=== PATIENT | female | born 1995 | race Asian ===

== ENCOUNTER → 2019-06-12 | Outpatient (CLI) | payer OTHER ==
[2019-06-12 17:21] LABS: BASO % 0.4 % (0.0-1.0); EOS # 0.1 10^3/uL (0.0-0.5); HEMATOCRIT 40.7 % (36.0-47.0); HEMOGLOBIN 13.1 g/dl (12.0-15.5); LYMPH # 2.5 10^3/uL (1.5-5.0); LYMPH % 22.8 % (24.0-44.0); MEAN CORPUSCULAR HEMOGLOBIN 26.3 pg (27.0-33.0); MEAN CORPUSCULAR HGB CONC 32.2 g/dl (32.0-36.5); MEAN CORPUSCULAR VOLUME 81.7 fl (80.0-96.0); MONO # 0.9 10^3/uL (0.0-0.8); MONO % 8.8 % (0.0-5.0); NEUTROPHILS # 7.2 10^3/uL (1.5-8.5); NEUTROPHILS % 66.6 % (36.0-66.0); PLATELET COUNT, AUTOMATED 323 10^3/uL (150-450); RED BLOOD COUNT 4.98 10^6/uL (4.00-5.40); WHITE BLOOD COUNT 10.7 10^3/uL (4.0-10.0)
[2019-06-12 17:48] LABS: FREE THYROXINE INDEX 3.5 % (1.3-4.8); T UPTAKE 30 % (30-39); THYROXINE (T4) 11.5 UG/DL (4.5-12.0)
[2019-06-12 18:33] LABS: CHLAMYDIA DNA AMPLIFICATION NEGATIVE (NEGATIVE); GC DNA AMPLIFICATION NEGATIVE (NEGATIVE)
[2019-06-15 13:07] LABS: RUBELLA IgG QUALITATIVE IMMUNE (IMMUNE)
[2019-06-15 13:36] LABS: HIV 1&2 SCREEN CENTAUR NEGATIVE (NEGATIVE)
== END ==
LOC: M SMT 15:39
PROVIDERS: ATTEND Advanced Practice Midwife
DX: Z34.01 Encounter for supervision of normal first pregnancy, first trimester (principal); Z3A.00 Weeks of gestation of pregnancy not specified

== ENCOUNTER → 2019-09-02 | Outpatient (CLI) | payer OTHER ==
--- NOTE | 2019-09-03 02:17 | REP ---
Clinical: Anatomical evaluation. Comparison: None . Findings: Examination demonstrates a single live intrauterine in cephalic presentation. motion is identified by technologist. Placenta is noted anterior and grade zero without evidence for placenta previa or abruption. Amniotic fluid volume is normal. Cervix measures 3.2 cm in length and appears closed. No evidence for nuchal cord. Gestational age by LMP 19 weeks 2 days with ANTHONY 01/25/2020 . Gestational age by current measurements 19 weeks 5 days with ANTHONY 01/22/2020 . FHR equals 153 beats per minute. BPD 4.5 cm 19 weeks 4 days HC 17.1 cm 19 weeks 5 days AC 14.4 cm 19 weeks 5 days FL 3.1 cm 19 weeks 4 days HL 3.1 cm 20 weeks 3 days HC/AC ratio 1.19 Estimated weight 305 grams ( 60th percentile). Anatomical assessment demonstrates normal structures including cranium, choroid plexus, cavum, cerebellum/posterior fossa, facial features, lungs, four-chamber heart/ventricular outflow tracts, diaphragm, stomach, cord insertion/three-vessel cord, kidneys/bladder, spine, and extremities. Impression: Single live intrauterine in cephalic presentation demonstrating appropriate interval growth. Anatomical assessment is complete and within normal limits. Electronically Signed by Alfred Lopez MD 09/03/2019 02:08 A
== END ==
LOC: M RAD 16:34
PROVIDERS: ATTEND Specialist
DX: Z36.3 Encounter for antenatal screening for malformations (principal); Z3A.19 19 weeks gestation of pregnancy

== ENCOUNTER 2019-10-10 16:40 | Outpatient (CLI) | payer OTHER ==
[~2019-10-10] VITALS: Ht 157.5 cm; Wt 73.6 kg
[2019-10-10] MEDS ORDERED: ZOFR4TAB16 PO (17:00)
[2019-10-10] MEDS ORDERED: PRENTAB9 PO (17:00)
[2019-10-10 18:11] VITALS: BP 108/66
--- NOTE | 2019-10-10 18:44 | REPVR ---
PROCEDURE INFORMATION: Exam: US Abdomen Limited, Right Upper Quadrant Exam date and time: 10/10/2019 6:05 PM Age: 24 years old Clinical indication: Abdominal pain; Acute; ; Additional info: Ruq pain TECHNIQUE: Imaging protocol: Real-time ultrasound of the abdomen with image documentation. Examination was focused on the right upper quadrant. COMPARISON: No relevant prior studies available. FINDINGS: Liver: Normal. No masses. Gallbladder: No gallstones. No gallbladder wall thickening. Common bile duct: Normal. No stones. No dilation. Pancreas: Visualized pancreas is unremarkable. Right kidney: Mild right-sided hydronephrosis. Other findings: heart rate measures 144 beats per minute. IMPRESSION: Mild right-sided hydronephrosis, most likely related to the gravid uterus compressing the distal right ureter. Electronically signed by: Janneth Torres On 10/10/2019 18:44:33 PM
[2019-10-10 18:54] LABS: HEMATOCRIT 35.7 % (36.0-47.0); HEMOGLOBIN 11.6 g/dl (12.0-15.5); MEAN CORPUSCULAR HEMOGLOBIN 26.8 pg (27.0-33.0); MEAN CORPUSCULAR HGB CONC 32.5 g/dl (32.0-36.5); MEAN CORPUSCULAR VOLUME 82.4 fl (80.0-96.0); PLATELET COUNT, AUTOMATED 273 10^3/uL (150-450); RED BLOOD COUNT 4.33 10^6/uL (4.00-5.40); WHITE BLOOD COUNT 8.4 10^3/uL (4.0-10.0)
[2019-10-10 19:25] LABS: ALBUMIN 3.2 GM/DL (3.2-5.2); ALT/SGPT 15 U/L (12-78); BILIRUBIN,TOTAL 0.4 MG/DL (0.2-1.0); BLOOD UREA NITROGEN 7 MG/DL (7-18); CALCIUM LEVEL 8.6 MG/DL (8.5-10.1); CARBON DIOXIDE LEVEL 24 MEQ/L (21-32); CHLORIDE LEVEL 108 MEQ/L (98-107); GLOMERULAR FILTRATION RATE > 60.0 (>60); GLUCOSE, FASTING 67 MG/DL (70-100); LIPASE 84 U/L (73-393); POTASSIUM SERUM 3.9 MEQ/L (3.5-5.1); SODIUM LEVEL 139 MEQ/L (136-145)
--- NOTE | 2019-10-11 20:36 | IPN ---
DATE: 10/10/2019 24-year-old 1 at 25 weeks gestation presents with upper abdominal pain near her rib cage for the last several hours. The pain was severe and lasted for about 2 hours, it then eased off. She has felt nausea on and off throughout . She had no bleeding. The pain was severe. She felt pelvic pressure. OBJECTIVE: Afebrile, vital signs stable. No apparent distress. Head and neck exam normal. Lungs clear. Heart regular. Abdomen: Nontender, gravid, negative Brothers's sign, heart tones category 1. ASSESSMENT: 24-year-old, 1 at 25 weeks with costochondritis. PLAN: Will check labs and gallbladder ultrasound to rule out other causes of pain. The patient can be discharged home. Followup in the office this week.
== END 2019-10-10 20:01 | disposition home or self-care (01) ==
LOC: M LDO 16:40
PROVIDERS: ATTEND Specialist
DX: O99.89 Other specified diseases and conditions complicating pregnancy, childbirth and the puerperium (principal); R07.89 Other chest pain; Z3A.25 25 weeks gestation of pregnancy
CPT/HCPCS: 76705; 80053; 83690; 85027; G0378; G0463

== ENCOUNTER → 2019-10-19 | Outpatient (REF) | payer OTHER ==
[~2019-10-19] MED LIST: PRENTAB9 PO; ZOFR4TAB16 PO
[2019-10-19 15:56] LABS: HEMATOCRIT 36.2 % (36.0-47.0); HEMOGLOBIN 11.7 g/dl (12.0-15.5); MEAN CORPUSCULAR HEMOGLOBIN 27.3 pg (27.0-33.0); MEAN CORPUSCULAR HGB CONC 32.3 g/dl (32.0-36.5); MEAN CORPUSCULAR VOLUME 84.4 fl (80.0-96.0); PLATELET COUNT, AUTOMATED 281 10^3/uL (150-450); RED BLOOD COUNT 4.29 10^6/uL (4.00-5.40); WHITE BLOOD COUNT 9.1 10^3/uL (4.0-10.0)
== END ==
LOC: M PLALAB 11:22
PROVIDERS: ATTEND Specialist
DX: Z34.02 Encounter for supervision of normal first pregnancy, second trimester (principal)

== ENCOUNTER → 2019-12-30 | Outpatient (REF) | payer OTHER | LOC: M LAB REF 16:54 | PROVIDERS: ATTEND Obstetrics & Gynecology | DX: Z3A.36 36 weeks gestation of pregnancy (principal) ==

== ENCOUNTER 2020-01-21 03:58 | Inpatient (IN) | payer OTHER ==
[~2020-01-21] VITALS: Ht 157.5 cm; Wt 79.2 kg
[2020-01-21 04:16] VITALS: BP 132/74
[2020-01-21] MEDS ORDERED: LACTATED RINGER'S 1000 ML IV STA (04:21)
[2020-01-21] MEDS ORDERED: LR 1,000 ML IV SCH (04:21)
[2020-01-21 05:14] LABS: HEMATOCRIT 40.8 % (36.0-47.0); HEMOGLOBIN 13.7 g/dl (12.0-15.5); MEAN CORPUSCULAR HGB CONC 33.6 g/dl (32.0-36.5); MEAN CORPUSCULAR VOLUME 80.3 fl (80.0-96.0); PLATELET COUNT, AUTOMATED 253 10^3/uL (150-450); RED BLOOD COUNT 5.08 10^6/uL (4.00-5.40); WHITE BLOOD COUNT 11.6 10^3/uL (4.0-10.0)
[2020-01-21] MEDS ORDERED: FENTANYL 2MCG/ML ROPIVACAINE 0.2% IN 0.9% NACL 100ML IVBAG As Ordered ONE (05:55)
--- NOTE | 2020-01-21 06:30 | HPEPDOC ---
Obstetrical History & Physical General Date of Admission Jan 21, 2020 at 04:27 Primary Care Physician: EBONY HUFFMAN CNM History of Present Illness Patient is a 24-year-old female who is a at 39.3 weeks gestation with an ANTHONY of 01/23/20 based off of her first trimester ultrasound. She [facility] i n [facility] Her has been uncomplicated. She presents to L&D with complaints of leaking of fluid and contractions. She denies vaginal bleeding. Reports active movement. Chief Complaint: Active Labor, Rupture of membranes Information Provided By: Patient Age: 24 : 1 Term: 0 Pre-term: 0 Abortions: 0 Livin Care Care: Good Care Dating Final EDC: Jan 25, 2020 Final EDC by: 1st trimester (US) EGA at Admission: 39.3 Antepartum Course Height (inches): 62 Pre- weight (lbs.): 142 Admission Weight (lbs.): 174 Change in Weight (lbs.): 32 Past Medical History Past Obstetrical History : Past Obstetrical History: Primgravida Past Medical History Surgical History: Tonsilectomy, Other (adenoidectomy) Family History Significant Family History: Hypertension, Other (thyroid disease) Social History Social history No medical issues Marital Status: Family situation: Spouse/partner home Psychosocial History: No pertinent psych hx * Smoker: non-smoker Alcohol: Denies Drugs: denies Abuse Violence Screening Have you been hit/kicked/slapp: No Have you been sexually assault: No Allergies Coded Allergies: No Known Allergies (Unverified , 10/10/19) Medications Scheduled No.137/Iron/Folic Acd ( Vitamin Tablet) 1 Each Tablet, 1 TAB PO DAILY Scheduled PRN Ondansetron HCl (Zofran) 4 Mg Tablet, 1 TAB PO Q6-8HP PRN for nausea/vomiting Physical Examination Physical Examination GENERAL: Alert and oriented times three. BREAST: . ABDOMEN: Gravid and non-tender to touch. FETUS: Is vertex (VTX) by sterile vaginal examination (SVE), fetus is vertex (VTX) by Alex. HEART RATE: Regular rate and rhythm. LUNGS: Clear to auscultation (CTA). EXTREMITIES: No edema. No clonus. Deep tendon reflexes (DTRs) + 2. Vital Signs/I&O Vital Signs Date Time Temp Pulse Resp B/P (MAP) Pulse Ox O2 Delivery O2 Flow Rate FiO2 01/21/20 04:16 98.4 68 18 132/74 (93) Laboratory Data 24H LABS Laboratory Tests 2 01/21/20 04:35: Serology Scanned Report Hepatitis B Testing 01/21/20 05:03: Nucleated Red Blood Cells % (auto) 0.0 CBC/BMP Laboratory Tests 01/21/20 05:03 Urine Culture: No Growth Pertinent Laboratoy Data Blood Type: O+ RBC Antibody Screen: Negative HIV: Negative Hepatitis B: Negative Hepatitis C: Negative Rapid Plasma Reagin: Nonreactive Rubella: Immune Chlamydia/Gonorrhea: Negative Group B Streptococcus: Negative Glucose Tolerance Test: 110 Vaginal Examination Dilation: 6 cm Effacement: 100% Station: -1 Presentation: Cephalic presentation Position: Vertex (occiput) Assessment Heart Rate (FHR): 120 Variability: Moderate Accelerations: Positive Decelerations: None Tocometer Contractions: Yes Frequency: regular Multi-drug resistant Organism: No history of MDRO Assessment/Plan Assessment IUP at 39.3 weeks gestation SROM active labor Category I FHR tracing GBS negative Plan Admit to L&D. OOB ad mikala. Diet: clears. Group B Streptococcus (GBS) negative. Labs and intravenous (IV) per unit protocol. Anesthesia consult per patient's request. Lactated Ringers (LR): Bolus 800 mL, then at 125 mL/hr. Anticipate normal spontaneous delivery (). C-S as appropriate. EBONY HUFFMAN CNM Jan 21, 2020 06:30
[2020-01-21] MEDS ORDERED: OXYTOCIN 30 UNITS IN 0.9% NaCl 500ML IV BAG (J2590) As Ordered ONE (06:48)
[2020-01-21] MEDS ORDERED: fentaNYL 100 MCG/2 ML INJECTION (J3010) As Ordered ONE (06:54)
[2020-01-21] MEDS ORDERED: OXYTOCIN DRIP 30 UNITS in IV 1 EA IV SCH (08:17)
--- NOTE | 2020-01-21 08:22 | DNPDOC ---
[facility] Delivery Note Delivery Note DATE OF DELIVERY: 01/21/20 at 0749 PREDELIVERY DIAGNOSIS: 39-4/7 weeks' gestation and labor. POST DELIVERY DIAGNOSIS: Delivered. PROCEDURE: Spontaneous vaginal delivery. ENVIRONMENTAL RESEARCH SCIENTIST: Ebony Ramos CNM, REYES ANESTHESIA: epidural ESTIMATED BLOOD LOSS: 350 mL. FINDINGS: 6 pounds 14 ounces; 3120 grams; female infant, Score 9/9. DELIVERY SUMMARY: Patient is a 24-year-old female who is now a at 39.4 weeks gestation who presented to L&D in active labor. She received an epidural for pain management, which gave her minimal relief She progressed to fully di lated at 0726 and pushed to a living female in the VIN position with restitution to ROT. The anterior shoulder delivered with ease and the corpus immediately followed at 0749. The baby was placed [id number] active and crying . The cord was clamped after pulsation ceased and cut by the FOB. A 3-vessel cord was noted. The placenta delivered spontaneously and intact at 0754. Uterine hemostasis was achieved via rapid infusion of IV Pitocin and fundal massage. The vagina, perineum and cervix was inspected and found to have a right labial laceration that was repaired with a 4.0 Vicryl Rapide 4.0 RB-1. 1% Lidocaine was used for this. Mom and baby are in stable condition. They plan on naming her Allen. All counts of instruments and sponges are correct. EBONY RAMOS CNM Jan 21, 2020 08:22
[2020-01-21] MEDS ORDERED: RHOGAM 300 MCG (1500 IU) INJ (J2790) IM SCH (08:30)
[2020-01-21] MEDS ORDERED: ACETAMINOPHEN 500 MG TAB PO PRN (08:30)
[2020-01-21] MEDS ORDERED: ACETAMINOPHEN TAB 650MG DOSE (2X325MG) PO PRN (08:30)
[2020-01-21] MEDS ORDERED: MEASLES,MUMPS,RUBELLA VACCINE INJ (MMR-II) (90707) SC SCH (08:30)
[2020-01-21] MEDS ORDERED: DIBUCAINE 1% OINTMENT 30GM TOP PRN (08:30)
[2020-01-21] MEDS ORDERED: ANUSOL HC CREAM 30GM TOP PRN (08:30)
[2020-01-21] MEDS ORDERED: DOCUSATE SODIUM 100 MG CAP PO PRN (08:30)
[2020-01-21] MEDS ORDERED: IBUPROFEN 600 MG TAB PO PRN (08:30)
[2020-01-21] MEDS ORDERED: METHYLERGONOVINE MALEATE 0.2 MG TAB PO PRN (08:30)
[2020-01-21] MEDS: PRENATAL VITAMINS CHEWABLE TABLET PO SCH (08:57)
[2020-01-21 10:03] VITALS: BP 133/82
[2020-01-21] MEDS ORDERED: LIDOCAINE 1% MDV 20ML VIAL INFIL ONE (16:30)
[2020-01-21 18:12] VITALS: BP 124/75
[2020-01-21] MEDS: IBUPROFEN 800 MG TAB PO PRN (22:12)
[2020-01-22] MEDS: IBUPROFEN 800 MG TAB PO PRN (05:37)
[2020-01-22 06:34] VITALS: BP 127/78
--- NOTE | 2020-01-22 07:36 | IPNPDOC ---
Progress Note Date of Service: Jan 22, 2020 Day#: 1 Progress Note SUBJECT: Doing well without complaints. Ambulating, voiding and pain is well-c ontrolled. Reports minimal lochia. +breast feeding OBJECTIVE: VITAL SIGNS: Within normal limits, afebrile. Alert and oriented times three. Abdomen: Fundus firm at U-2. Soft, NTTP. Ext: neg calf tenderness. ASSESSMENT: day #1 status post normal spontaneous vaginal delivery. Recovering in stable condition. PLAN: 1. Continue routine care 2. Discharge plans for tomorrow VS, I&O, 24H, Fishbone Vital Signs/I&O Vital Signs Date Time Temp Pulse Resp B/P (MAP) Pulse Ox O2 Delivery O2 Flow Rate FiO2 01/22/20 06:34 97.3 68 18 127/78 (94) I&O- Last 24 Hours up to 6 AM 01/22/20 05:59 Output Total 925 ml Balance -925 ml KATJA WILLINGHAM MD. Jan 22, 2020 07:36
[2020-01-22] MEDS: PRENATAL VITAMINS CHEWABLE TABLET PO SCH (09:52)
== END 2020-01-22 17:50 | disposition home or self-care (01) | DRG 807 ==
LOC: M LDO 03:58 → M LDI 04:27 → M OBS 09:52
PROVIDERS: ADMIT Advanced Practice Midwife; ATTEND Advanced Practice Midwife
PROC: 10E0XZZ Delivery of Products of Conception, External Approach (ICD-10-PCS; principal; 2020-01-21)
PROC: 0HQ9XZZ Repair Perineum Skin, External Approach (ICD-10-PCS; 2020-01-21)
DX: O70.0 First degree perineal laceration during delivery (principal); Z37.0 Single live birth; Z3A.39 39 weeks gestation of pregnancy

== ENCOUNTER → 2020-04-28 | Outpatient (REF) | payer OTHER ==
[2020-05-03 15:09] LABS: CHLAMYDIA DNA AMPLIFICATION NEGATIVE (NEGATIVE); GC DNA AMPLIFICATION NEGATIVE (NEGATIVE)
== END ==
LOC: M SFHCWAGY 10:41
PROVIDERS: ATTEND Advanced Practice Midwife
DX: Z12.4 Encounter for screening for malignant neoplasm of cervix (principal); N76.0 Acute vaginitis
CPT/HCPCS: 87491; 87591; G0123

== ENCOUNTER 2020-10-31 16:54 | Emergency (ER) | payer OTHER ==
[~2020-10-31] VITALS: Ht 157.5 cm; Wt 56.8 kg
[2020-10-31] MEDS ORDERED: NS 1,000 ML IV SCH (17:15)
[2020-10-31] MEDS ORDERED: ESSETAB4 PO (17:17)
[2020-10-31 18:26] LABS: RSV AMPLIFICATION NEGATIVE (NEGATIVE)
[2020-10-31] MEDS ORDERED: GASTROGRAFIN SOLUTION 30ML (Q9963) As Ordered ONE (19:24)
[2020-10-31] MEDS: GASTROGRAFIN SOLUTION 30ML PO SCH ×2 (19:31→20:15)
[2020-10-31] MEDS ORDERED: ISOVUE-370 76% 100ML VIAL As Ordered ONE (21:08)
--- NOTE | 2020-10-31 21:59 | CR ---
CONSULTATION DATE: 10/31/2020 REASON FOR CONSULTATION: Abdominal pain, possible appendicitis per CT scan from [facility]. HISTORY OF PRESENT ILLNESS: The patient is a pleasant 25-year-old woman who was transferred to [facility] from [facility] with a history of some abdominal discomfort and a CT scan reportedly suggesting acute appendicitis. The patient reports that she had developed fairly suddenly abdominal discomfort with some severe cramping this morning at about noon. She reports that it went from being just a sharp stabbing pain in the right lower quadrant to being pain that radiated across the lower abdomen with severe cramping within a very short period of time. She reports she ended up on the floor in a position in severe pain. After a short time it did improve slightly and she went to the Emergency Department at [facility], where she was checked in just after 1:00 in the afternoon. In the Emergency Department she was given some Zofran and 50 mcg of Fentanyl, and some IV fluid was administered. She underwent laboratory studies and had a CT scan of the abdomen and pelvis obtained. The radiologist had interpreted the CT scan as showing acute appendicitis. The provider at [facility] contacted the nursing pipeline maintenance supervisor, who contacted me and I accepted her in transfer for a surgical evaluation regarding possible appendicitis. The patient denies any history of prior similar pain. She has had no abdominal surgery. ALLERGIES: The patient has no known drug allergies. MEDICATIONS: The patient is currently on no active medications. She does take a daily multivitamin. PAST MEDICAL HISTORY: She denies any active medical problems. PAST SURGICAL HISTORY: The patient's past surgical history is significant for a tonsillectomy and adenoidectomy approximately 15 years ago. FAMILY HISTORY: Noncontributory. SOCIAL HISTORY: The patient is . She denies any tobacco use and has an alcoholic beverage or two about twice a month. She denies any unprescribed drug use. REVIEW OF SYSTEMS: The patient's review of systems revealed no history of heart or lung issues. She denies any history of seizure or stroke. There is no history of diarrhea, constipation, rectal bleeding. She has no history of peptic ulcer disease, hepatitis, pancreatitis or yellow jaundice. She denies dysuria or hematuria. She has no bone or joint problems. She denies any history of DVT or pulmonary embolus. PHYSICAL EXAMINATION: GENERAL APPEARANCE: A thin, pleasant, young woman in no obvious discomfort at this time. She is alert and oriented. VITAL SIGNS: Pulse of about 70-75, blood pressure is normal. She has palpable radial and pedal pulses. SKIN: Warm and dry. HEART: Regular rate and rhythm without murmur. LUNGS: Clear to auscultation bilaterally. ABDOMEN: A few striae. The abdomen is flat. She has bowel sounds present in all four quadrants. There is no tympani to percussion. Palpation reveals the abdomen to be soft throughout. She has some mild direct tenderness in the right lower quadrant but this extends across the mid abdomen and even into the left lower quadrant. She has no guarding and no rebound. There is no palpable mass. There is no evident hernia. LABORATORY STUDIES: Laboratory studies from [facility] included a CBC showing a white count of 10, hemoglobin 12, hematocrit 38, and a platelet count of 324,000. Differential count showed 57% neutrophils, 31% lymphocytes and 10% monocytes. Platelet count was 324,000. Coagulation studies were normal. Chemistry profile showed normal electrolytes with a BUN of 13, creatinine 0.66 and a glucose of 102. Liver function tests were normal as were her total protein, albumin and lipase. A TSH had been done which was normal. A urinalysis was also obtained which showed no evidence of infection and a urine hCG was negative. IMAGING DATA: A CT scan of the abdomen and pelvis was obtained at [facility]. This was done without any contrast. The radiologist reported that the appendix revealed acute appendicitis. There was a 3 cm cyst noted of the right ovary with a small amount of fluid in the cul-de-sac. There was no free air. The final impression was findings highly suspicious for acute appendicitis with a 3 follicular cyst of the right ovary and a 0.5 cm fat containing umbilical hernia. A copy of the CD from the CAT scan was sent with the patient. I reviewed the images personally. I see no obvious changes of acute appendicitis. The study, I think, is quite limited, given the lack or oral or IV contrast. IMPRESSION: Abdominal pain of uncertain etiology, possible appendicitis. PLAN: I am unconvinced at this point that she has appendicitis. The onset of her pain was quite acute and has now actually diminished somewhat. Her white blood cell count was normal with a normal differential. Her exam showed some mild direct tenderness across the lower abdomen. The CT scan was reviewed by me and I find no definite evidence for acute appendicitis on the imaging. 1. I will have a repeat CT scan done with oral and IV contrast to better evaluate the possibility of appendicitis. She does report that she is due for her menstrual cycle sometime in about 5 days. It could be that this represents some bleeding from a follicular cyst or other gynecologic problem. 2. I will review the CT scan when the imaging is available. EMILIA
--- NOTE | 2020-10-31 22:15 | REPVR ---
PROCEDURE INFORMATION: Exam: CT Abdomen And Pelvis With Contrast Exam date and time: 10/31/2020 9:19 PM Age: 25 years old Clinical indication: Abdominal pain; Generalized; Additional info: ? Appendicitis TECHNIQUE: Imaging protocol: Computed tomography of the abdomen and pelvis with contrast. Radiation optimization: All CT scans at this facility use at least one of these dose optimization techniques: automated exposure control; mA and/or kV adjustment per patient size (includes targeted exams where dose is matched to clinical indication); or iterative reconstruction. Contrast material: ISOVUE 370; Contrast volume: 100 ml; Contrast route: INTRAVENOUS (IV); COMPARISON: GALLBLADDER US 10/10/2019 6:02 PM FINDINGS: Liver: Unremarkable. Gallbladder and bile ducts: Unremarkable. No ductal dilation. Pancreas: Unremarkable. No ductal dilation. Spleen: Unremarkable. Adrenal glands: Normal. No mass. Kidneys and ureters: No hydronephrosis or stones. Stomach and bowel: Stomach is unremarkable. No small bowel obstruction. Large bowel is unremarkable. Appendix: The appendix is normal. Intraperitoneal space: Small to moderate degree of mixed density free fluid in the lower pelvis, possibly hemorrhagic. Vasculature: Unremarkable. Lymph nodes: No enlarged lymph nodes. Urinary bladder: Unremarkable as visualized. Reproductive: Approximately 1.7 cm peripherally enhancing cyst in the right ovary. Bones/joints: No acute osseus lesion or fracture. Soft tissues: Unremarkable. IMPRESSION: 1. Approximately 1.7 cm peripherally enhancing cyst in the right ovary, possibly corpus luteal cyst. Recommend correlation with pelvic ultrasound. 2. Small to moderate degree of mixed density free fluid in the lower pelvis, possibly hemorrhagic. This can be seen in the setting of a ruptured hemorrhagic ovarian cyst. Recommend gynecology consultation. 3. No evidence of appendicitis. Electronically signed by: Robin Magallanes On 10/31/2020 22:15:54 PM
--- NOTE | 2020-11-01 00:19 | REPVR ---
PROCEDURE INFORMATION: Exam: US Pelvis Complete, Transabdominal and US Pelvis, Transvaginal and US Duplex Artery and Vein, Ovaries, Complete Exam date and time: 10/31/2020 11:56 PM Age: 25 years old Clinical indication: Pelvic pain; Additional info: Rlq pain R/O cyst v torsion. Additional provided history of negative beta hCG (Dr. Turner) TECHNIQUE: Imaging protocol: Real-time transabdominal and transvaginal pelvic ultrasound (complete) with image documentation. Transvaginal imaging was used for better evaluation of the endometrium, adnexa, and/or cervix. Real-time duplex ultrasound scan of the arterial and venous flow of the ovaries with B-mode, color Doppler flow and spectral waveform analysis. COMPARISON: CT ABD/PEL W/IV ORAL CONTRAS 10/31/2020 9:18 PM FINDINGS: Uterus/cervix: Uterus measures 7.9 x 4.5 x 5.2 cm. Normal echogenicity. Endometrium measures 1.4 cm in thickness. Right adnexa: Right ovary measures 3.1 x 2.2 x 3.2 cm. Approximately 1.3 cm hypoechoic cyst with slight peripheral hyperemia, likely involuting corpus luteal cyst. Normal arterial waveforms on duplex color spectral Doppler analysis. Left adnexa: Left ovary measures 2.6 x 2 x 2.1 cm. Multiple small normal follicles. Normal echogenicity. Normal arterial waveforms on duplex color spectral Doppler analysis. Intraperitoneal space: Moderate degree of complex hemorrhagic free fluid in the cul-de-sac. Urinary bladder: Unremarkable, as visualized. IMPRESSION: 1. Moderate degree of complex hemorrhagic free fluid in the cul-de-sac. Given the addtional presence of a likely involuting right ovarian corpus luteal cyst, findings are most suspected to be related to ruptured hemorrhagic cyst. Recommend follow-up ultrasound in 6 to 8 weeks for resolution, at the discretion of gynecology. 2. No evidence of ovarian torsion. Findings were discussed with Dr. Turner at 11/01/2020 12:15 AM EDT. Electronically signed by: Robin Magallanes On 11/01/2020 00:18:52 AM
[2020-11-01 00:34] VITALS: BP 123/56
== END 2020-11-01 00:35 | disposition home or self-care (01) ==
LOC: M ED 16:54
DX: N83.201 Unspecified ovarian cyst, right side (principal)
CPT/HCPCS: 74177; 76830; 76856; 87631; 93976; 96360; 96361; 99284; G0463; Q9967

== ENCOUNTER 2023-06-24 05:00 | Emergency (ER) | payer OTHER ==
[~2023-06-24] VITALS: Ht 157.5 cm; Wt 56.8 kg
[~2023-06-24 05:00] MED LIST changes: +ESSETAB4 PO
[2023-06-24 07:56] LABS: BASO # 0.1 10^3/uL (0.0-0.2); BASO % 0.5 % (0.0-1.0); EOS # 0.1 10^3/uL (0.0-0.5); EOS % 1.4 % (0.0-3.0); HEMATOCRIT 39.6 % (36.0-47.0); HEMOGLOBIN 12.7 g/dl (12.0-15.5); LYMPH # 2.3 10^3/uL (1.5-5.0); LYMPH % 23.1 % (24.0-44.0); MEAN CORPUSCULAR HEMOGLOBIN 27.4 pg (27.0-33.0); MEAN CORPUSCULAR HGB CONC 32.1 g/dl (32.0-36.5); MEAN CORPUSCULAR VOLUME 85.5 fl (80.0-96.0); MONO # 0.7 10^3/uL (0.0-0.8); MONO % 7.4 % (2.0-8.0); NEUTROPHILS # 6.6 10^3/uL (1.5-8.5); NEUTROPHILS % 67.2 % (36.0-66.0); PLATELET COUNT, AUTOMATED 273 10^3/uL (150-450); RED BLOOD COUNT 4.63 10^6/uL (4.00-5.40); WHITE BLOOD COUNT 9.8 10^3/uL (4.0-10.0)
[2023-06-24 08:20] LABS: BLOOD UREA NITROGEN 10 MG/DL (9-23); CALCIUM LEVEL 8.7 MG/DL (8.5-10.1); CARBON DIOXIDE LEVEL 28 MMOL/L (20-31); CHLORIDE LEVEL 107 MMOL/L (98-107); CREATININE FOR GFR 0.63 MG/DL (0.55-1.30); GLOMERULAR FILTRATION RATE > 60.0 (>60); GLUCOSE, FASTING 94 MG/DL (60-100); POTASSIUM SERUM 4.3 MMOL/L (3.5-5.1); SODIUM LEVEL 142 MMOL/L (136-145)
[2023-06-24 08:27] LABS: HCG, SERUM QUALITATIVE NEGATIVE (NEGATIVE)
[2023-06-24] MEDS ORDERED: METOCLOPRAMIDE 10MG TAB PO ONE (11:15)
[2023-06-24] MEDS ORDERED: KETOROLAC 60MG 2ML VIAL IM ONE (11:15)
[2023-06-24] MEDS ORDERED: FLUORESCEIN OPHTH 1MG STRIP OS ONE (11:15)
[2023-06-24] MEDS ORDERED: PROPARACAINE 0.5% OPHTH SOL 15ML OS ONE (11:15)
[2023-06-24] MEDS ORDERED: CIPR0.3S37 OS (11:48)
[2023-06-24 12:08] VITALS: BP 109/69; TEMP 98.1; O2SAT 98
== END 2023-06-24 12:12 | disposition home or self-care (01) ==
LOC: M ED 05:00
DX: S05.02XA Injury of conjunctiva and corneal abrasion without foreign body, left eye, initial encounter (principal); Z79.899 Other long term (current) drug therapy
CPT/HCPCS: 70480; 80048; 84703; 85025; 96372; 99283; J1885

== ENCOUNTER → 2024-04-15 | Outpatient (CLI) | payer OTHER ==
[~2024-04-15] MED LIST changes: +CIPR0.3S37 OS
== END ==
LOC: M PLALAB 11:49
PROVIDERS: ATTEND Advanced Practice Midwife
DX: O03.9 Complete or unspecified spontaneous abortion without complication (principal); Z3A.00 Weeks of gestation of pregnancy not specified

== ENCOUNTER → 2024-04-27 | Outpatient (CLI) | payer OTHER | LOC: M PLALAB 11:08 | PROVIDERS: ATTEND Advanced Practice Midwife | DX: Z32.01 Encounter for pregnancy test, result positive (principal) ==

== ENCOUNTER → 2024-04-29 | Outpatient (CLI) | payer OTHER | LOC: M PLALAB 11:08 | PROVIDERS: ATTEND Advanced Practice Midwife | DX: Z32.01 Encounter for pregnancy test, result positive (principal) ==

== ENCOUNTER 2024-06-16 09:26 | Day surgery (SDC) | payer OTHER ==
[~2024-06-16] VITALS: Ht 157.5 cm; Wt 59.4 kg
[2024-06-16] MEDS ORDERED: NS 1,000 ML IV SCH ×2 (10:20→12:30)
[2024-06-16] MEDS: DOXYCYCLINE HYCLATE 100 MG in DEXTROSE 5% (D5W) MINI-BAG PLU 100 ML IV SCH (11:24)
[2024-06-16] MEDS ORDERED: KETOROLAC 60MG 2ML VIAL As Ordered ONE (11:31)
[2024-06-16] MEDS ORDERED: MIDAZOLAM INJ 2MG/2ML VIAL As Ordered ONE (11:31)
[2024-06-16] MEDS ORDERED: fentaNYL 100 MCG/2 ML INJECTION As Ordered ONE (11:31)
[2024-06-16] MEDS ORDERED: ONDANSETRON 4MG 2ML VIAL As Ordered ONE (11:31)
[2024-06-16] MEDS ORDERED: propofoL 200 MG/20 ML VIAL As Ordered ONE (11:32)
[2024-06-16] MEDS ORDERED: LIDOCAINE 2% 100MG/5ML SDV (FOR ANES.) As Ordered ONE (11:32)
[2024-06-16] MEDS ORDERED: LIDOCAINE 1% MDV 20ML VIAL As Ordered ONE (11:34)
[2024-06-16] MEDS ORDERED: METOCLOPRAMIDE INJ 10MG/2ML VIAL As Ordered ONE (12:09)
[2024-06-16] MEDS ORDERED: ONDANSETRON 4MG 2ML VIAL IV PRN (12:30)
[2024-06-16] MEDS ORDERED: oxyCODONE 5MG TAB PO PRN (12:30)
[2024-06-16] MEDS ORDERED: fentaNYL 100 MCG/2 ML INJECTION IV PRN (12:30)
[2024-06-16] MEDS ORDERED: HYDROMORPHONE HCL 0.5 MG/ 0.5 ML SYRINGE IV PRN (12:30)
[2024-06-16 14:00] VITALS: BP 121/64; TEMP 98.2; O2SAT 100
== END 2024-06-16 14:11 | disposition home or self-care (01) ==
LOC: M SDC 09:26
PROVIDERS: ATTEND Obstetrics & Gynecology
DX: O02.1 Missed abortion (principal); G43.909 Migraine, unspecified, not intractable, without status migrainosus; F12.10 Cannabis abuse, uncomplicated; Z79.899 Other long term (current) drug therapy
CPT/HCPCS: 59820; 88305; J1100; J1885; J2250; J2405; J2765; J3010

== ENCOUNTER → 2024-07-01 | Outpatient (CLI) | payer OTHER ==
[2024-07-01 14:55] LABS: HEMATOCRIT 39.7 % (36.0-47.0); HEMOGLOBIN 12.7 g/dl (12.0-15.5); MEAN CORPUSCULAR HEMOGLOBIN 26.7 pg (27.0-33.0); MEAN CORPUSCULAR VOLUME 83.4 fl (80.0-96.0); PLATELET COUNT, AUTOMATED 275 10^3/uL (150-450); RED BLOOD COUNT 4.76 10^6/uL (4.00-5.40); WHITE BLOOD COUNT 5.2 10^3/uL (4.0-10.0)
== END ==
LOC: M PLALAB 11:34
PROVIDERS: ATTEND Nurse Practitioner Family
DX: O26.21 Pregnancy care for patient with recurrent pregnancy loss, first trimester (principal)

== ENCOUNTER → 2024-08-10 | Outpatient (CLI) | payer OTHER | LOC: M PLALAB 12:39 | PROVIDERS: ATTEND Obstetrics & Gynecology | DX: O02.0 Blighted ovum and nonhydatidiform mole (principal) ==

== ENCOUNTER → 2025-03-03 | Outpatient (CLI) | payer OTHER | LOC: M RAD 10:22 | PROVIDERS: ATTEND Advanced Practice Midwife | DX: O44.42 Low lying placenta NOS or without hemorrhage, second trimester (principal); Z3A.19 19 weeks gestation of pregnancy ==

== ENCOUNTER → 2025-04-28 | Outpatient (CLI) | payer OTHER ==
[2025-04-28 13:12] LABS: PLATELET COUNT, AUTOMATED 208 10^3/uL (150-450)
[2025-04-28 13:19] LABS: GLUCOSE CHALLENGE TEST 1 HOUR 126 MG/DL (LESS THAN 140)
[2025-04-28 13:54] LABS: HIV 1&2 SCREEN NEGATIVE (NEGATIVE)
[2025-04-28 14:02] LABS: HEPATITIS C VIRUS ABY INDEX < 0.02 INDEX (<0.8)
== END ==
LOC: M PLALAB 10:37
PROVIDERS: ATTEND Advanced Practice Midwife
DX: O44.42 Low lying placenta NOS or without hemorrhage, second trimester (principal); Z3A.00 Weeks of gestation of pregnancy not specified

== ENCOUNTER → 2025-06-01 | Outpatient (CLI) | payer OTHER | LOC: M WHC 10:41 | PROVIDERS: ATTEND Advanced Practice Midwife | DX: O44.42 Low lying placenta NOS or without hemorrhage, second trimester (principal) ==

== ENCOUNTER → 2025-07-01 | Outpatient (REF) | payer OTHER | LOC: M SFHCWAGY 13:46 | PROVIDERS: ATTEND Advanced Practice Midwife | DX: Z34.93 Encounter for supervision of normal pregnancy, unspecified, third trimester (principal); Z3A.36 36 weeks gestation of pregnancy ==

== ENCOUNTER 2025-07-29 08:04 | Inpatient (IN) | payer OTHER ==
[~2025-07-29] VITALS: Ht 157.5 cm; Wt 74.8 kg
[2025-07-29] VITALS (29 sets, daily range): BP systolic 95–149; BP diastolic 50–93; O2SAT 97
[2025-07-29] MEDS ORDERED: LR 1,000 ML IV SCH (09:10)
[2025-07-29] MEDS: LR 1,000 ML IV SCH ×2 (09:10→19:49)
[2025-07-29] MEDS: PENICILLIN G POTASSIUM 5 MU IV 5 MU in DEXTROSE 5% (D5W) MINI-BAG PLU 100 ML IV STA (09:21)
[2025-07-29 10:31] LABS: PLATELET COUNT, AUTOMATED 250 10^3/uL (150-450)
[2025-07-29 10:46] LABS: HEPATITIS C VIRUS ABY INDEX 0.05 INDEX (<0.8)
[2025-07-29 11:14] LABS: HIV 1&2 SCREEN NEGATIVE (NEGATIVE)
[2025-07-29] MEDS: PEN G POT 3,000,000 UNIT/50 ML 3,000,000 UNIT in IV 1 EA IV SCH (13:35)
[2025-07-29] MEDS ORDERED: LR 500 ML IV PRN (15:25)
[2025-07-29] MEDS ORDERED: ONDANSETRON 4MG/2ML VIAL IV PRN (15:25)
[2025-07-29] MEDS ORDERED: NALOXONE INJ 0.4 MG/1 ML VIAL IV PRN (15:25)
[2025-07-29] MEDS ORDERED: diphenhydrAMINE 50 MG/ML VIAL IV PRN (15:25)
[2025-07-29] MEDS ORDERED: EPIDURAL/PCA KEYS XX PRN (15:25)
[2025-07-29] MEDS ORDERED: FENTANYL 2 MCG/ML ROPIVACAINE 0.2% IN 0.9% NACL 100 ML IVBAG As Ordered ONE (15:28)
[2025-07-29] MEDS: FENTANYL/ROPIVACAINE/NACL BAG 100 ML EPIDURAL SCH (15:46)
[2025-07-29] MEDS ORDERED: OXYTOCIN DRIP 30 UNITS in IV 1 EA IV SCH (17:15)
[2025-07-29] MEDS: OXYTOCIN DRIP 30 UNITS in IV 1 EA IV SCH ×2 (19:49→21:20)
[2025-07-29] MEDS ORDERED: METHYLERGONOVINE MALEATE 0.2 MG TAB PO PRN (21:35)
[2025-07-29] MEDS ORDERED: DOCUSATE SODIUM 100 MG CAPSULE PO PRN (21:35)
[2025-07-29] MEDS ORDERED: IBUPROFEN 600 MG TAB PO PRN (21:35)
[2025-07-29] MEDS ORDERED: RHOGAM 300MCG (1500IU) INJ IM SCH (21:35)
[2025-07-29] MEDS ORDERED: ACETAMINOPHEN 325 MG TAB PO PRN (21:35)
[2025-07-29] MEDS: ANUSOL HC CREAM 30 GM TOP PRN (23:59)
[2025-07-30] MEDS: DIBUCAINE 1% OINTMENT 30 GM TOP PRN
[2025-07-30] MEDS: ACETAMINOPHEN 500 MG TAB PO PRN (01:55)
[2025-07-30 06:00] VITALS: BP 106/70; O2SAT 97
[2025-07-30 07:29] LABS: PLATELET COUNT, AUTOMATED 235 10^3/uL (150-450)
[2025-07-30] MEDS: PRENATAL VITAMINS CHEWABLE TABLET PO SCH (10:11)
[2025-07-30] MEDS: FERROUS SULFATE 325 MG TAB PO SCH (10:11)
[2025-07-30] MEDS: IBUPROFEN 800 MG TAB PO PRN (13:52)
[2025-07-30 18:00] VITALS: BP 124/67; O2SAT 99
[2025-07-31] MEDS: MEASLES,MUMPS,RUBELLA VACCINE INJ (MMR-II) SC.IMMUN ONE (09:00)
[2025-07-31] MEDS ORDERED: IBUP80TA PO (10:58)
[2025-07-31] MEDS ORDERED: ACET-683 PO (10:58)
[2025-07-31] MEDS: FLUZONE VACCINE TRI PF(25-26) 0.5ML SYRINGE IM.IMMUN ONE (12:06)
== END 2025-07-31 12:15 | disposition home or self-care (01) | DRG 560 ==
LOC: M LDO 08:04 → M LDI 08:23 → M OBS 23:29
PROVIDERS: ADMIT Student in an Organized Health Care Education/Training Program; ATTEND Student in an Organized Health Care Education/Training Program
PROC: 10E0XZZ Delivery of Products of Conception, External Approach (ICD-10-PCS; principal; 2025-07-29)
PROC: 0HQ9XZZ Repair Perineum Skin, External Approach (ICD-10-PCS; 2025-07-29)
DX: O48.0 Post-term pregnancy (principal); O99.824 Streptococcus B carrier state complicating childbirth; Z3A.40 40 weeks gestation of pregnancy; O70.0 First degree perineal laceration during delivery; Z37.0 Single live birth